=== PATIENT | female | born 1970 | race Caucasian/White ===

== ENCOUNTER 2016-10-07 21:17 | Observation (INO) | payer OTHER ==
--- NOTE | 2016-10-07 21:37 | PDOC ---
History of Present Illness - History of Present Illness Initial Comments: 10/07/16 21:44 The patient is a 45 year old female with history of hypertension, hyperlipidemia , diabetes (not currently on medications) who presents to the ED complaining of 2 hours of room-spinning dizziness with associated nausea, chest tightness, and mild left sided headache radiating to the neck. The patient states she was doing nothing in particular at the onset of her pain. She denies shortness of breath. She denies abdominal pain, vomiting, or diarrhea. She endorses chills in the past 3 days, but denies fever or recent illness. She denies ear ringing. PCP: Dr. Slaughter <Francine Medina - Last Filed: 10/08/16 02:35> - General History Source: Patient <Cristobal Palma - Last Filed: 10/08/16 06:16> - General Chief Complaint: Chest Pain Stated Complaint: CHEST PAIN Time Seen by Provider: 10/07/16 21:37 NIH Stroke Scale - Last Known Well Date/Time & Onset Date Last Known Well: 10/07/16 Time Last Known Well: 19:00 - Initial Evaluation Level of consciousness: Alert Ask patient the month and their age: Answers both correctly Ask patient to open & close eyes; make fist and let go: Obeys both correctly Best gaze (horizontal eye movement): Normal Visual field testing: No visual field loss Facial paresis (Show teeth/raise eyebrows/close eyes tight): Normal symmetrical movement Motor Function: Left Arm: Normal Motor Function: Right Arm: Normal (extends arm 90 (or 45) degrees for 10 seconds without drift Motor Function: Left Leg: Normal (extends leg 30 degrees for 5 seconds without drift) Motor Function: Right Leg: Normal (extends leg 30 degrees for 5 seconds without drift) Limb Ataxia: No ataxia Sensory(Use pinprick test arms,legs,trunk,face/side to side): Normal Best language (Describe picture, name items, read sentences): No Aphasia Dysarthria (read several words): Normal articulation Extinction and Inattention: No abnormality - Total Score NIH Stroke Scale Score: 0 <Cristobal Palma - Last Filed: 10/08/16 06:16> tPA Exclusion checklist 3-4.5h - Time Elapsed Date last known well: 10/07/16 Time last known well: 19:00 Elaspsed time: Day(s) and 11 Hour(s) and 13 Minutes - Thrombolytic Therapy Candidate Is patient eligible for thrombolytic therapy: No - Exclusion Criteria 3-4.5 hr SBP greater than 185 or DBP greater than 110mmHg despite tx: No Recent IC/spinal surgery,head trauma or stroke<3mos.: No Hx IC hemorrhage, IC neoplasm, AV malformation or aneurysm: No Active internal bleeding: No Blding diathesis(low plt ct, inc PTT,INR>1.7 or use of NOAC): No CT demonstrates multilobar infarct(>1/3 cerebral hemiphere): No Arterial puncture at noncompressible site in previous 7 days: No Blood glucose concentration less than 50mg/dL (2.7mmol/L): No - Relative Exclusion Criteria 3-4.5 hr Life expectancy <1 yr or severe co-morbid illness: No : No Patient/family refused: No Stroke severity too mild: Yes Recent acute OR (w/in previous 3 months): No Seizure at onset with postictal residual neuro impairments: No Major surgery or serious trauma w/in previous 14 days: No Recent GI or hemorrhage (w/in previous 21 days): No - Add'l Relative Exclusion 3-4.5 hr Age > 80: No Hx of both diabetes AND prior ischemic stroke: No Taking an oral anticoagulant regardless of INR: No NIHSS >25: No - Ineligibility reason(s) Reasons No tPA given: See reason(s) noted above (pt had no focal neurological deficits, infarct was incidental finding on CT scan) <Cristobal Palma - Last Filed: 10/08/16 06:16> Past History <Francine Medina - Last Filed: 10/08/16 02:35> - Past Medical History Anemia: Yes Diabetes: Yes HTN: Yes Hypercholesterolemia: Yes - Surgical History Abdominal Surgery: Yes GI Surgery: Yes (GASTRIC BYPASS) - Psycho/Social/Smoking Cessation Hx Suicidal Ideation: No Smoking History: Current some day smoker Have you smoked in the past 12 months: Yes Number of Cigarettes Smoked Daily: 0 Hx Alcohol Use: Yes (RARE) Drug/Substance Use Hx: No <Cristobal Palma - Last Filed: 10/08/16 06:16> - Past Medical History Allergies/Adverse Reactions: Allergies Allergy/AdvReac Type Severity Reaction Status Date / Time No Known Allergies Allergy Verified 10/07/16 21:36 Home Medications: Ambulatory Orders Aspirin [ASA -] 81 mg PO DAILY tab.chew 06/23/16 Atorvastatin Ca [Lipitor] 10 mg PO HS tablet 06/23/16 Ferrous Sulfate [Feosol] 325 mg PO DAILY ud 06/23/16 Hydrochlorothiazide [Hctz -] 25 mg PO DAILY tablet 06/23/16 Lisinopril [Prinivil] 30 mg PO DAILY tablet 06/23/16 Review of Systems - Review of Systems Able to Perform ROS?: Yes Comments:: 10/07/16 21:49 GENERAL/CONSTITUTIONAL: No fever or chills. No weakness. HEAD, EYES, EARS, NOSE AND THROAT: No change in vision. No ear pain or discharge. No sore throat CARDIOVASCULAR: +Chest discomfort. No chest pain or shortness of breath. RESPIRATORY: No cough, wheezing, or hemoptysis. GASTROINTESTINAL: +Nausea. No vomiting, diarrhea or constipation. GENITOURINARY: No dysuria, frequency, or change in urination. MUSCULOSKELETAL: No joint or muscle swelling or pain. No neck or back pain. SKIN: No rash NEUROLOGIC: +Dizziness. +Left sided headache. No loss of consciousness, or change in strength/sensation. ENDOCRINE: No increased thirst. No abnormal weight change. HEMATOLOGIC/LYMPHATIC: No anemia, easy bleeding, or history of blood clots. ALLERGIC/IMMUNOLOGIC: No hives or skin allergy. <Francine Medina - Last Filed: 10/08/16 02:35> *Physical Exam - Vital Signs Last Vital Signs Temp Pulse Resp BP Pulse Ox 97.6 F 60 18 171/105 100 10/07/16 21:36 10/07/16 21:36 10/07/16 21:36 10/07/16 21:36 10/07/16 21:36 - Physical Exam Comments: 10/07/16 21:54 GENERAL: Awake, alert, and fully oriented, in no acute distress HEAD: No signs of trauma EYES: PERRLA, EOMI, sclera anicteric, conjunctiva clear ENT: Auricles normal inspection, hearing grossly normal, nares patent, oropharynx clear without exudates. Moist mucosa NECK: Normal ROM, supple, no lymphadenopathy, JVD, or masses LUNGS: Breath sounds equal, clear to auscultation bilaterally. No wheezes, and no crackles HEART: Regular rate and rhythm, normal S1 and S2, no murmurs, rubs or gallops ABDOMEN: Soft, nontender, normoactive bowel sounds. No guarding, no rebound. No masses EXTREMITIES: Normal range of motion, no edema. No clubbing or cyanosis. No cords, erythema, or tenderness NEUROLOGICAL: Cranial nerves II through XII grossly intact. Normal speech, normal gait. Sensation intact throughout. 5/5 motor strength in all 4 extremities. SKIN: Warm, Dry, normal turgor, no rashes or lesions noted. <Francine Medina - Last Filed: 10/08/16 02:35> Heart Score/ECG Review #1 10/07/16 21:57 EKG obtained 21:32. Sinus bradycardia at 59 bpm. Otherwise normal ECG. <Francine Medina - Last Filed: 10/08/16 02:35> ED Treatment Course - LABORATORY CBC & Chemistry Diagram: 10/07/16 22:00 10/07/16 22:00 - RADIOLOGY Radiology Studies Ordered: 10/08/16 01:58 CT of brain, reviewed and interpreted by Imaging Sanitary Engineer FINDINGS: No bleed. No mass. 3.9 mm low density focus just inferior to the left basal ganglia is of uncertain significant. It could represent a verchow robins space . It is not clearly present on the prior scan but this could be due to volume averaging. It could represent a small lacunar infarct of indeterminate age. Too small to characterize. Correlate with any symptoms related to this area. No other infarct is identified. THIS DOCUMENT HAS BEEN ELECTRONICALLY SIGNED Deonte Linares MD 10/08/2016 01:48 DANO Pavon. Please call Imaging Sanitary Engineer [phone] with questions. <Francine Medina - Last Filed: 10/08/16 02:35> - LABORATORY CBC & Chemistry Diagram: 10/07/16 22:00 10/07/16 22:00 <Cristobal Palma - Last Filed: 10/08/16 06:16> Medical Decision Making - Medical Decision Making 10/08/16 02:[address] results reviewed. Patient reports she was given 2 baby ASA by EMS. Call placed to supply person Neurology group at [phone]. Awaiting call back. 10/08/16 02:35 Second call to [facility] at [phone]. Awaiting call back. <Francine Medina - Last Filed: 10/08/16 02:35> - Medical Decision Making 10/07/16 22:03 Dr. Palma: The scribe's documentation has been prepared under my direction and personally reviewed by me in its entirery. I confirm that the note above accurately reflects all work, treatment, procedures, and medical decision making performed by me. 10/08/16 06:[address] Haynes (neurology). Pt will be seen later on today. Pt is not a TPA candidate as pt had no neurological deficits and infarct was an incident finding <Cristobal Palma - Last Filed: 10/08/16 06:16> *DC/Admit/Observation/Transfer - Attestations Scribe Attestion: 10/07/16 21:57 Documentation prepared by Francine Medina, acting as medical device assembler for Cristobal Palma DO. <Francine Medina - Last Filed: 10/08/16 02:35> - Discharge Dispostion Admit: Yes <Cristobal Palma - Last Filed: 10/08/16 06:16> Diagnosis at time of Disposition: Lacunar infarction Hypertension Qualifiers: Hypertension type: essential hypertension Qualified Code(s): I10 - Essential ( primary) hypertension - Referrals
[2016-10-07] MEDS ORDERED: ONDANSETRON 4 MG/2 ML VIAL IVPUSH STA ×2 (21:38→22:45)
[2016-10-07] MEDS ORDERED: MECLIZINE HCL 25 MG TABLET (FP) PO STA (21:38)
[2016-10-07 21:45] VITALS: BMI 28.0
[2016-10-07] MEDS ORDERED: ONDANSETRON 4 MG/2 ML VIAL ONE ×2 (22:21→22:47)
[2016-10-07] MEDS ORDERED: MECLIZINE HCL 25 MG TABLET (FP) ONE (22:21)
[2016-10-07 22:32] LABS: BASOPHIL 1.3 % (0-2.0); EOSINOPHIL 3.1 % (0-4.5); MCH 27.1 pg (25.7-33.7); MEAN CELL VOLUME 82.1 fl (80-96); MEAN PLT VOLUME 7.3 fl (7.5-11.1); NEUTROPHILS 37.7 % (42.8-82.8); PLATELET COUNT 294 K/MM3 (134-434); RDW 14.5 % (11.6-15.6); WHITE BLOOD COUNT 5.5 K/mm3 (4.0-10.0)
[2016-10-07 22:45] LABS: INR 1.09 (0.82-1.09)
[2016-10-07] MEDS ORDERED: hydrALAZINE HCL 20 MG/ML VIAL IVPUSH ONE (22:46)
[2016-10-07] MEDS ORDERED: hydrALAZINE HCL 20 MG/ML VIAL ONE (22:47)
[2016-10-07 23:16] LABS: ALBUMIN 3.3 g/dl (3.4-5.0); ANION GAP 8 (8-16); BILIRUBIN,TOTAL 0.2 mg/dL (0.2-1.0); CALCIUM 8.4 mg/dL (8.5-10.1); CO2 30 mmol/L (21-32); CREATININE 0.7 mg/dL (0.55-1.02); GLUCOSE,RANDOM 91 mg/dL (74-106); MAGNESIUM 2.3 mg/dL (1.8-2.4); SGOT/AST 14 U/L (15-37); SGPT/ALT 26 U/L (12-78); TOT PROT 6.4 g/dl (6.4-8.2)
[2016-10-07 23:19] LABS: ALK PHOS 95 U/L (45-117); TROPONIN I < 0.02 ng/ml (0.00-0.05)
[2016-10-07 23:37] LABS: URINE APPEARANCE CLEAR; URINE BILIRUBIN NEGATIVE (NEGATIVE); URINE COLOR STRAW; URINE GLUCOSE (UA) NEGATIVE (NEGATIVE); URINE KETONE NEGATIVE (NEGATIVE); URINE LEUK ESTERASE NEGATIVE (NEGATIVE); URINE NITRITE NEGATIVE (NEGATIVE); URINE PROTEIN NEGATIVE (NEGATIVE); URINE UROBILINOGEN NEGATIVE E.U./dl (0.2-1.0)
[2016-10-07 23:39] LABS: URINE BLOOD 2+ (NEGATIVE)
[2016-10-07 23:42] LABS: URINE RBC 104 /hpf (0-3); URINE WBC 4 /hpf (3-5)
[2016-10-08] MEDS ORDERED: morphine CARPU-JECT 2 MG/1 ML DISP.SYRIN IVPUSH ONE ×3 (00:01→02:11)
[2016-10-08] MEDS ORDERED: ONDANSETRON 4 MG/2 ML VIAL IVPUSH STA (00:01)
[2016-10-08] MEDS ORDERED: morphine CARPU-JECT 2 MG/1 ML DISP.SYRIN ONE (00:05)
--- NOTE | 2016-10-08 02:14 | HP ---
<Holden Arora - Last Filed: 10/08/16 03:03> CHIEF COMPLAINT: Chest Pain PCP: Dr. Trish Song [phone] HISTORY OF PRESENT ILLNESS: The patient is a 45 year old female with history of hypertension, hyperlipidemia , diabetes (not currently on medications) who presented to the ED with 2 hours history of dizziness, chest tightness, nausea, and left sided headache radiating to the neck. The patient stated she was doing nothing in particular at the onset of her pain. She denied shortness of breath. She denied abdominal pain, vomiting, or diarrhea. She endorses chills in the past 3 days, but denied fever or recent illness. She denied ear ringing. ER course was notable for: (1) ASA x2 given by EMS (2) CT head showing lacunar infarct of indeterminate age (3) 3.9 mm low density focus, possible Virchow Robinns space Recent Travel: None reported PAST MEDICAL HISTORY: hypertension, hyperlipidemia, diabetes PAST SURGICAL HISTORY: Gastric Bypass Social History: Smoking: Current everyday smoker Alcohol: Report rare use Drugs: Denied Family History: noncontributory Allergies: No Known Allergies Allergy (Verified 10/07/16 21:36) HOME MEDICATIONS: Home Medications Medication Instructions Recorded Aspirin [ASA -] 81 mg PO DAILY tab.chew 06/23/16 Atorvastatin Ca [Lipitor] 10 mg PO HS tablet 06/23/16 Ferrous Sulfate [Feosol] 325 mg PO DAILY ud 06/23/16 Hydrochlorothiazide [Hctz -] 25 mg PO DAILY tablet 06/23/16 Lisinopril [Prinivil] 30 mg PO DAILY tablet 06/23/16 REVIEW OF SYSTEMS CONSTITUTIONAL: Present: Chills Absent: fever, diaphoresis, generalized weakness, malaise, loss of appetite, weight change HEENT: Absent: rhinorrhea, nasal congestion, throat pain, throat swelling, difficulty swallowing, mouth swelling, ear pain, eye pain, visual changes CARDIOVASCULAR: Present: Chest pain Absent: Syncope, palpitations, irregular heart rate, lightheadedness, peripheral edema RESPIRATORY: Absent: cough, shortness of breath, dyspnea with exertion, orthopnea, wheezing, stridor, hemoptysis GASTROINTESTINAL: Present: Nausea Absent: abdominal pain, abdominal distension, vomiting, diarrhea, constipation, melena, hematochezia GENITOURINARY: Absent: dysuria, frequency, urgency, hesitancy, hematuria, flank pain, genital pain MUSCULOSKELETAL: Present: Neck pain Absent: myalgia, arthralgia, joint swelling, back pain SKIN: Absent: rash, itching, pallor HEMATOLOGIC/IMMUNOLOGIC: Absent: easy bleeding, easy bruising, lymphadenopathy, frequent infections ENDOCRINE: Absent: unexplained weight gain, unexplained weight loss, heat intolerance, cold intolerance NEUROLOGIC: Present: Left sided headache, dizziness Absent: focal weakness or paresthesias, unsteady gait, seizure, mental status changes, bladder or bowel incontinence PSYCHIATRIC: Absent: anxiety, depression, suicidal or homicidal ideation, hallucinations. PHYSICAL EXAMINATION Vital Signs - 24 hr 10/07/16 10/07/16 10/07/16 21:36 23:33 23:43 Temperature 97.6 F Pulse Rate 60 Pulse Rate [ 61 Apical] Respiratory 18 20 Rate Blood Pressure 171/105 Blood Pressure 138/83 [Right Arm] O2 Sat by Pulse 100 100 100 Oximetry (%) 10/08/16 10/08/16 00:19 02:17 Temperature Pulse Rate Pulse Rate [ 61 63 Apical] Respiratory 18 Rate Blood Pressure Blood Pressure 136/82 166/103 [Right Arm] O2 Sat by Pulse Oximetry (%) GENERAL: Awake, alert, and fully oriented, in no acute distress. HEAD: Normal with no signs of trauma. EYES: Pupils equal, round and reactive to light, extraocular movements intact, sclera anicteric, conjunctiva clear. No lid lag. EARS, NOSE, THROAT: Ears normal, nares patent, oropharynx clear without exudates. Moist mucous membranes. NECK: Normal range of motion, supple without lymphadenopathy, JVD, or masses. LUNGS: Breath sounds equal, clear to auscultation bilaterally. No wheezes, and no crackles. No accessory muscle use. HEART: Regular rate and rhythm, normal S1 and S2 without murmur, rub or gallop. ABDOMEN: Soft, nontender, not distended, normoactive bowel sounds, no guarding, no rebound, no masses. No hepatomegaly or splenomegaly. MUSCULOSKELETAL: Normal range of motion at all joints. No bony deformities or tenderness. No CVA tenderness. UPPER EXTREMITIES: 2+ pulses, warm, well-perfused. No cyanosis. No clubbing. Cap refill <2 seconds. No peripheral edema. LOWER EXTREMITIES: 2+ pulses, warm, well-perfused. No calf tenderness. No peripheral edema. NEUROLOGICAL: Cranial nerves II-XII intact. Normal speech. PSYCHIATRIC: Cooperative. Good eye contact. Appropriate mood and affect. SKIN: Warm, dry, normal turgor, no rashes or lesions noted. Laboratory Results - last 24 hr 10/07/16 10/07/16 10/07/16 22:00 22:00 22:00 WBC 5.5 RBC 4.46 Hgb 12.1 D Hct 36.6 D MCV 82.1 MCHC 33.0 RDW 14.5 D Plt Count 294 MPV 7.3 L Neutrophils % 37.7 L D Lymphocytes % 51.0 H D Monocytes % 6.9 Eosinophils % 3.1 Basophils % 1.3 INR 1.09 Sodium 142 Potassium 3.4 L Chloride 104 Carbon Dioxide 30 Anion Gap 8 BUN 20 H D Creatinine 0.7 Creat Clearance w eGFR > 60 Random Glucose 91 Calcium 8.4 L Magnesium 2.3 Total Bilirubin 0.2 D AST 14 L D ALT 26 Alkaline Phosphatase 95 Creatine Kinase 105 Troponin I < 0.02 Total Protein 6.4 Albumin 3.3 L Serum , Qual Urine Color Urine Appearance Urine pH Ur Specific [place] Urine Protein Urine Glucose (UA) Urine Ketones Urine Blood Urine Nitrite Urine Bilirubin Urine Urobilinogen Ur Leukocyte Esterase Urine RBC Urine WBC Ur Epithelial Cells 10/07/16 10/07/16 22:00 23:00 WBC RBC Hgb Hct MCV MCHC RDW Plt Count MPV Neutrophils % Lymphocytes % Monocytes % Eosinophils % Basophils % INR Sodium Potassium Chloride Carbon Dioxide Anion Gap BUN Creatinine Creat Clearance w eGFR Random Glucose Calcium Magnesium Total Bilirubin AST ALT Alkaline Phosphatase Creatine Kinase Troponin I Total Protein Albumin Serum , Qual Negative Urine Color Straw Urine Appearance Clear Urine pH 8.0 D Ur Specific [place] 1.008 Urine Protein Negative Urine Glucose (UA) Negative Urine Ketones Negative Urine Blood 2+ H Urine Nitrite Negative Urine Bilirubin Negative Urine Urobilinogen Negative Ur Leukocyte Esterase Negative Urine RBC 104 Urine WBC 4 Ur Epithelial Cells Rare IMAGING: CT of brain, reviewed and interpreted by Imaging Beauty Counselor FINDINGS: No bleed. No mass. 3.9 mm low density focus just inferior to the left basal ganglia is of uncertain significant. It could represent a Virchow Robbin' s space . It is not clearly present on the prior scan but this could be due to volume averaging. It could represent a small lacunar infarct of indeterminate age. Too small to characterize. Correlate with any symptoms related to this area. No other infarct is identified. THIS DOCUMENT HAS BEEN ELECTRONICALLY SIGNED Deonte Linares MD 10/08/2016 01:48 DANO Geller Please call Imaging Beauty Counselor [phone] with questions. ASSESSMENT/PLAN: The patient is a 45 year old female with history of hypertension, hyperlipidemia , diabetes who presented with dizziness, chest tightness, nausea, and left sided headache radiating to the neck being admitted for lacunar infarct on CT 1. CVA- lacunar infarct on CT -Continue on aspirin -ECHO -Carotid US -Check lipid panel -Hemoglobin A1C -Statin -Check TSH -MRI brain without contrast -Neuro consult 2. HTN -Continue home meds -Hold BP meds for now resume tomorrow 3. HLD -Continue statin 4. Diabetes- Not currently on any meds -Check A1C 5. Chest tightness- Heart score 4 - Rule out ACS -Trend troponins -ECG -Follow up ECHO 6. DVT PPX -SCDs Admit to stroke tele. Documentation prepared by Holden Arora, acting as director medical science for Dr. Maranda Roth MD. <Maranda Roth - Last Filed: 10/08/16 05:56> ADDENDUM: HTN- Hold meds Visit type - Emergency Visit Emergency Visit: Yes ED Registration Date: 10/08/16 Care time: The patient presented to the Emergency Department on the above date and was hospitalized for further evaluation of their emergent condition. - New Patient This patient is new to me today: Yes Date on this admission: 10/08/16 - Critical Care Critical Care patient: No
[2016-10-08] MEDS ORDERED: hydrALAZINE HCL 20 MG/ML VIAL IVPUSH ONE (02:17)
[2016-10-08] MEDS ORDERED: hydrALAZINE HCL 20 MG/ML VIAL ONE (02:19)
[2016-10-08] MEDS ORDERED: morphine CARPU-JECT 4 MG/1 ML DISP.SYRIN ONE (02:19)
[2016-10-08] MEDS ORDERED: HYDROmorphone HCL CARPU-JECT 1 MG/1 ML DISP.SYRIN IVPUSH ONE (03:01)
[2016-10-08] MEDS ORDERED: HYDROmorphone HCL CARPU-JECT 1 MG/1 ML DISP.SYRIN ONE ×2 (03:03→12:13)
[2016-10-08 09:52] LABS: BASOPHIL 1.3 % (0-2.0); EOSINOPHIL 2.1 % (0-4.5); MCHC 32.7 g/dl (32.0-36.0); MEAN CELL VOLUME 82.6 fl (80-96); MEAN PLT VOLUME 7.2 fl (7.5-11.1); NEUTROPHILS 55.9 % (42.8-82.8); PLATELET COUNT 296 K/MM3 (134-434); RDW 14.6 % (11.6-15.6); WHITE BLOOD COUNT 5.4 K/mm3 (4.0-10.0)
[2016-10-08] MEDS: FERROUS SO4 325 MG TABLET (FP) PO SCH (09:54)
[2016-10-08] MEDS: ASPIRIN 325 MG ENTERIC COATED TABLET (FP) PO SCH (09:54)
[2016-10-08] MEDS ORDERED: LISINOPRIL 10 MG TABLET (FP) PO SCH (10:00)
[2016-10-08] MEDS ORDERED: HYDROCHLOROTHIAZIDE 25 MG TABLET (FP) PO SCH (10:00)
[2016-10-08 10:12] LABS: ANION GAP 9 (8-16); CALCIUM 8.6 mg/dL (8.5-10.1); CHOLESTEROL 129 mg/dL (50-200); CO2 29 mmol/L (21-32); CREATININE 0.6 mg/dL (0.55-1.02); GLUCOSE,RANDOM 88 mg/dL (74-106)
[2016-10-08 10:22] LABS: LDL CHOLESTEROL (ONLY SJRH) 70 mg/dL (5-100); THYROID STIMULATING HORMONE 2.19 uIU/ml (0.358-3.74)
[2016-10-08 10:32] LABS: C-REACTIVE PROTEIN < 0.3 MG/DL (0.00-0.3)
[2016-10-08 10:56] LABS: INR 1.11 (0.82-1.09); PROTHROMBIN TIME (PATIENT) 12.2 SEC (9.98-11.88)
[2016-10-08 10:58] LABS: ACTIVATED PTT 28.8 SECONDS (26.9-34.4)
[2016-10-08] MEDS ORDERED: HYDROmorphone HCL CARPU-JECT 1 MG/1 ML DISP.SYRIN IVPB ONE (11:00)
[2016-10-08] MEDS: ACETAMINOPHEN 325 MG TABLET (FP) PO PRN ×2 (11:14→21:16)
[2016-10-08] MEDS ORDERED: LISINOPRIL 10 MG TABLET (FP) PO ONE (11:36)
--- NOTE | 2016-10-08 11:39 | CONSULT ---
Consult Consult Specialty:: Neurology Reason for Consultation:: Possible stroke on CT head - History of Present Illness History of Present Illness: 45 year old woman with history of hypertension, diabetes, hyperlipidemia, presented to the ED with history of vertigo, chest tightness and left sided headache. The patient denies prior history of migraine, states she noted a holocephalic pain now more prominent on the left side. She does report nausea with the headache but denies photophobia, phonophobia, or vomiting. CT head final report- no acute infarct, left basal ganglia hypodensity likely small periventricular space. - Past Medical History [employer]: Yes: Syncope Cardio/Vascular: Yes: HTN, Hyperlipdemia Endocrine: Yes: Diabetes Mellitus - Alcohol/Substance Use Hx Alcohol Use: Yes (RARE) - Smoking History Smoking history: Current some day smoker Have you smoked in the past 12 months: Yes Aproximately how many cigarettes per day: 0 Home Medications - Allergies Allergies/Adverse Reactions: Allergies Allergy/AdvReac Type Severity Reaction Status Date / Time No Known Allergies Allergy Verified 10/07/16 21:36 - Home Medications Home Medications: Ambulatory Orders Aspirin [ASA -] 81 mg PO DAILY tab.chew 06/23/16 Atorvastatin Ca [Lipitor] 10 mg PO HS tablet 06/23/16 Ferrous Sulfate [Feosol] 325 mg PO DAILY ud 06/23/16 Hydrochlorothiazide [Hctz -] 25 mg PO DAILY tablet 06/23/16 Lisinopril [Prinivil] 30 mg PO DAILY tablet 06/23/16 Review of Systems - Review of Systems Constitutional: reports: No Symptoms Eyes: reports: No Symptoms HENT: reports: No Symptoms Neck: reports: No Symptoms Cardiovascular: reports: Chest Pain Respiratory: reports: No Symptoms Gastrointestinal: reports: No Symptoms Integumentary: reports: No Symptoms Neurological: reports: Headache Physical Exam Vital Signs: Vital Signs Temperature 97.6 F 10/07/16 21:36 Pulse Rate 59 L 10/08/16 10:40 Respiratory Rate 20 10/08/16 10:40 Blood Pressure 127/73 10/08/16 10:40 O2 Sat by Pulse Oximetry (%) 98 10/08/16 10:40 Constitutional: Yes: Well Nourished Eyes: Yes: Conjunctiva Clear, EOM Intact HENT: Yes: Atraumatic, Normocephalic Cardiovascular: Yes: S1, S2 Neurological: Yes: Alert, Oriented, Cran Nerves II-XII Intact ...Motor Strength: WNL Labs: CBC, BMP 10/08/16 09:20 10/08/16 09:20 Assessment/Plan 45 year old woman with history of hypertension, diabetes, hyperlipidemia, presented to the ED with history of vertigo, chest tightness and left sided headache. The patient denies prior history of migraine, states she noted a holocephalic pain now more prominent on the left side. She does report nausea with the headache but denies photophobia, phonophobia, or vomiting. CT head final report- no acute infarct, left basal ganglia hypodensity likely small periventricular space. Recommend Final CT head reports no acute infract Recommend MRI brain without contrast to further evaluate Carotid doppler shows no significant stenosis Recommend cardiac workup for chest tightness Supportive care
[2016-10-08 13:28] LABS: ERYTHROCYTE SEDIMENTATION RATE 9 mm/hr (0-20)
--- NOTE | 2016-10-08 14:34 | PN ---
Physical Exam: SUBJECTIVE: Patient seen and examined. c/o headache, tingling all around her lips. chest pain feels like tightness mid chest, substernally, nonradiating, 7/10 intensity. hx of multiple episodes of syncope. OBJECTIVE: Vital Signs Period Temp Pulse Resp BP Sys/Luque Pulse Ox Last 24 Hr 59-70 18-20 122-166/73-103 98-100 GENERAL: The patient is awake, alert, and fully oriented, in no acute distress. HEAD: Normal with no signs of trauma. EYES: PERRL, extraocular movements intact, sclera anicteric, conjunctiva clear. mild exophthalmos, no ptosis or lid lag. ENT: moist mucous membranes. LUNGS: Breath sounds equal, clear to auscultation bilaterally, no wheezes, no crackles, no accessory muscle use. HEART: Regular rate and rhythm, S1, S2 without murmur, rub or gallop. ABDOMEN: Soft, nontender, nondistended, normoactive bowel sounds, EXTREMITIES: 2+ pulses, warm, well-perfused, no edema. freely moving all joints without difficulty. Laboratory Results - last 24 hr 10/08/16 10/08/16 10/08/16 09:20 09:20 09:20 WBC 5.4 RBC 4.73 Hgb 12.8 Hct 39.1 MCV 82.6 MCHC 32.7 RDW 14.6 Plt Count 296 MPV 7.2 L Neutrophils % 55.9 D Lymphocytes % 32.5 D Monocytes % 8.2 Eosinophils % 2.1 Basophils % 1.3 ESR 9 INR 1.11 PTT (Actin FS) 28.8 Sodium 143 Potassium 3.6 Chloride 105 Carbon Dioxide 29 Anion Gap 9 BUN 15 D Creatinine 0.6 Random Glucose 88 Hemoglobin A1c % Calcium 8.6 Troponin I C-Reactive Protein < 0.3 Triglycerides 49 Cholesterol 129 Total LDL Cholesterol 70 HDL Cholesterol 64 H TSH 2.19 10/08/16 10/08/16 09:20 09:20 WBC RBC Hgb Hct MCV MCHC RDW Plt Count MPV Neutrophils % Lymphocytes % Monocytes % Eosinophils % Basophils % ESR INR PTT (Actin FS) Sodium Potassium Chloride Carbon Dioxide Anion Gap BUN Creatinine Random Glucose Hemoglobin A1c % 5.6 Calcium Troponin I < 0.02 C-Reactive Protein Triglycerides Cholesterol Total LDL Cholesterol HDL Cholesterol TSH Active Medications Generic Name Dose Route Start Last Admin Trade Name Freq PRN Reason Stop Dose Admin Acetaminophen 650 mg 10/08/16 09:58 10/08/16 11:14 Tylenol - PO 650 mg Q4H PRN Administration FEVER OR PAIN Aspirin 325 mg 10/08/16 10:00 10/08/16 09:54 Ecotrin - PO 325 mg DAILY MICHELL Administration Atorvastatin Calcium 80 mg 10/08/16 22:00 Lipitor - PO HS MICHELL Ferrous Sulfate 325 mg 10/08/16 10:00 10/08/16 09:54 Feosol - PO 325 mg DAILY MICHELL Administration ASSESSMENT/PLAN: 45 yr old woman with HTN,HLD,DM, presents to ED with dizziness, facial numbness , and left sided headache found to have hypertensive urgency. #r/o CVA given symptoms of facial numbness - CT head showing lacunar infarct of indeterminate age, 3.9 mm low density focus , possible Virchow Robinns space - Neurology consult, Dr. Shane - carotid doppler without significant stenosis, echo with mild concentric left ventricular hypertrophy(known to her pediatrician/medical doctor) - treated with ASA 325 and statin - lipid profile wnl, HbA1c wnl (no dm) - MRI pending #Hx of syncopal episode - had past outpatient work-up with holter monitor was told her by her pediatrician/medical doctor that she was fine - possible stress test; consult cardiology dr. dykes - admit to tele for arrhythmia monitoring - Diet: regular DVT: low risk, encourage ambulation Visit type - Emergency Visit Emergency Visit: No - New Patient This patient is new to me today: Yes Date on this admission: 10/08/16 - Critical Care Critical Care patient: No - Discharge Referral Referred to [facility] No
--- NOTE | 2016-10-08 16:06 | EKG ---
Test Reason : Blood Pressure : / mmHG Vent. Rate : 059 BPM Atrial Rate : 059 BPM P-R Int : 168 ms QRS Dur : 088 ms QT Int : 456 ms P-R-T Axes : 032 017 032 degrees QTc Int : 451 ms POOR DATA QUALITY, INTERPRETATION MAY BE ADVERSELY AFFECTED SINUS BRADYCARDIA OTHERWISE NORMAL ECG WHEN COMPARED WITH ECG OF 19-JUN-2016 15:42, CRITERIA FOR SEPTAL INFARCT ARE NO LONGER PRESENT Confirmed by HENNY SHEEHAN, [place] ([id number]) on 10/08/2016 4:06:09 PM Referred By: Confirmed By:AZ INMAN MD
--- NOTE | 2016-10-08 17:08 | PN ---
Teaching Attending Note Name of Resident: Elba Trujillo ATTENDING PHYSICIAN STATEMENT I saw and evaluated the patient. I reviewed the resident's note and discussed the case with the resident. I agree with the resident's findings and plan as documented. SUBJECTIVE: c/o episode of vertigo and multiple episodes of syncope in the past . Headache improved OBJECTIVE: Vital Signs Temperature 98.1 F 10/08/16 16:30 Pulse Rate 66 10/08/16 16:30 Respiratory Rate 20 10/08/16 16:30 Blood Pressure 125/82 10/08/16 16:30 O2 Sat by Pulse Oximetry (%) 97 10/08/16 16:45 onstitutional: Yes: Well Nourished Eyes: Yes: Conjunctiva Clear, EOM Intact HENT: Yes: Atraumatic, Normocephalic Cardiovascular: Yes: S1, S2, No MRG Neurological: Yes: Alert, Oriented, Cran Nerves II-XII Intact Motor Strength: 5/5 B/L CBC, BMP 10/08/16 09:20 10/08/16 09:20 CT head final report- no acute infarct, left basal ganglia hypodensity likely small periventricular space. 45 year old female that presents with transient vertigo, facial numbness and HTn urgency 1. Vertigo, transient paresthesia - rule out TIA. CT is negative. Carotid dopplers show no hemodynamically significant stenosis. - ASA -statins -MRI brain -BP control 2. Episode of chest tightness, reported history of arrythmias? - telemetry - cardiac enzymes x 3 -f/u echo -cardiology / stress test 3. Headache- now controlled -tylenol PRN
[2016-10-08] MEDS ORDERED: ATORVASTATIN CA 80 MG TABLET (FP) PO ONE (22:00)
[2016-10-08] MEDS ORDERED: ATORVASTATIN CA 80 MG TABLET (FP) PO SCH (22:00)
[2016-10-09 05:43] VITALS: TEMP 98.2
[2016-10-09 08:09] LABS: CALCIUM 8.5 mg/dL (8.5-10.1); CREATININE 0.6 mg/dL (0.55-1.02)
--- NOTE | 2016-10-09 09:15 | CON.CARD ---
[id number] Illness Chief Complaint: Presently asymptomatic. History of Present Illness: The patient is a 45 year old female with history of hypertension, hyperlipidemia , diabetes (not currently on medications) who presents to the ED complaining of 2 hours of room-spinning dizziness with associated nausea, chest tightness, and mild left sided headache radiating to the neck. The patient states she was doing nothing in particular at the onset of her pain. She denies shortness of breath. She denies abdominal pain, vomiting, or diarrhea. She endorses chills in the past 3 days, but denies fever or recent illness. She denies ear ringing. PCP: Dr. 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 Cardio/Vascular: Yes: HTN, Hyperlipdemia Pulmonary: No: Sleep Apnea Renal/: No: Renal Inusuff Endocrine: Yes: Diabetes Mellitus - Alcohol/Substance Use Hx Alcohol Use: Yes (RARE) - Smoking History Smoking history: Current some day smoker Have you smoked in the past 12 months: No Aproximately how many cigarettes per day: 0 Home Medications - Allergies Allergies/Adverse Reactions: Allergies Allergy/AdvReac Type Severity Reaction Status Date / Time No Known Allergies Allergy Verified 10/07/16 21:36 - Home Medications Home Medications: Ambulatory Orders Aspirin [ASA -] 81 mg PO DAILY tab.chew 06/23/16 Atorvastatin Ca [Lipitor] 10 mg PO HS tablet 06/23/16 Ferrous Sulfate [Feosol] 325 mg PO DAILY ud 06/23/16 Hydrochlorothiazide [Hctz -] 25 mg PO DAILY tablet 06/23/16 Lisinopril [Prinivil] 30 mg PO DAILY tablet 06/23/16 Hydrochlorothiazide [Hctz -] 25 mg PO DAILY tablet 10/09/16 Lisinopril [Prinivil] 30 mg PO DAILY #0 tablet 10/09/16 Family Disease History - Family Disease History Family History: Denies Review of Systems - Review of Systems Constitutional: reports: Weakness Eyes: reports: No Symptoms HENT: reports: No Symptoms Neck: reports: No Symptoms Cardiovascular: reports: No Symptoms Respiratory: reports: No Symptoms Gastrointestinal: reports: No Symptoms Genitourinary: reports: No Symptoms Breasts: reports: No Symptoms Reported Musculoskeletal: reports: No Symptoms Integumentary: reports: No Symptoms Neurological: reports: Dizziness Endocrine: reports: No Symptoms Hematology/Lymphatic: reports: No Symptoms Psychiatric: reports: Anxiety - Risk Factors Known Risk Factors: Yes: Diabetes Mellitus, Hypercholesterolemia, Hypertension, Physical Inactivity Vital Signs: Vital Signs Temperature 98.2 F 10/09/16 05:00 Pulse Rate 51 L 10/09/16 05:00 Respiratory Rate 18 10/09/16 05:00 Blood Pressure 117/64 10/09/16 05:00 O2 Sat by Pulse Oximetry (%) 98 10/09/16 04:00 Constitutional: Yes: Calm Eyes: Yes: WNL HENT: Yes: WNL Neck: Yes: WNL Respiratory: Yes: Regular Gastrointestinal: Yes: WNL Renal/: No: Anuria Cardiovascular: Yes: Regular Rate and Rhythm JVD: No Carotid Bruit: No PMI: Non-Displaced Heart Sounds: Yes: S1, S2 Murmur: Yes: Systolic Murmur, Grade 2 Musculoskeletal: Yes: Joint Stiffness Extremities: Yes: WNL Edema: No Peripheral Pulses WNL: Yes Integumentary: Yes: WNL Psychiatric: Yes: WNL - Other Data Labs, Other Data: CBC, BMP 10/08/16 09:20 10/09/16 05:35 INR, PTT INR 1.11 (0.82-1.09) 10/08/16 09:20 Troponin, BNP 10/08/16 09:20 Troponin I < 0.02 Troponin, BNP 10/08/16 09:20 Troponin I < 0.02 Imaging - Results Chest X-ray: Image Reviewed (no acute pathology) MRI: Image Reviewed (brain: no acute pathology) EKG: Image Reviewed (NSR) Problem List - Problems (1) Hypertension Assessment/Plan: On hydralazine, lisinopril, and HCTZ; serial BPs; electrolytes (K was repleted) ; BUN/Cr. F/u ECHO for LVEF, valve status. TSH. Lipids (on atorvastatin). Code(s): I10 - ESSENTIAL (PRIMARY) HYPERTENSION Qualifiers: Hypertension type: essential hypertension Qualified Code(s): I10 - Essential (primary) hypertension (2) Dizziness Assessment/Plan: orthostatic VSs. Hydration; avoid excessive diuretic use. Code(s): R42 - DIZZINESS AND GIDDINESS (3) Hyperlipidemia Code(s): E78.5 - HYPERLIPIDEMIA, UNSPECIFIED (4) Diabetes Assessment/Plan: f/u fasting glucose and HGBA1C (?"diet-controlled DM"). Code(s): E11.9 - TYPE 2 DIABETES MELLITUS WITHOUT COMPLICATIONS
[2016-10-09] MEDS ORDERED: HYDROCHLOROTHIAZIDE 25 MG TABLET (FP) PO SCH (10:00)
[2016-10-09] MEDS ORDERED: LISINOPRIL 10 MG TABLET (FP) PO SCH (10:00)
[2016-10-09] MEDS: ASPIRIN 325 MG ENTERIC COATED TABLET (FP) PO SCH (10:26)
[2016-10-09] MEDS: FERROUS SO4 325 MG TABLET (FP) PO SCH (10:26)
--- NOTE | 2016-10-09 11:09 | PN ---
Progress Note, Physician History of Present Illness: 45 year old woman with history of hypertension, diabetes, hyperlipidemia, presented to the ED with history of vertigo, chest tightness and left sided headache. The patient denies prior history of migraine, states she noted a holocephalic pain now more prominent on the left side. She does report nausea with the headache but denies photophobia, phonophobia, or vomiting. CT head final report- no acute infarct, left basal ganglia hypodensity likely small periventricular space. Doing much better Denies complaints MRI brain no acute findings - Current Medication List Current Medications: Active Medications Acetaminophen (Tylenol -) 650 mg PO Q4H PRN PRN Reason: FEVER OR PAIN Last Admin: 10/08/16 21:16 Dose: 650 mg Aspirin (Ecotrin -) 325 mg PO DAILY [facility] Last Admin: 10/09/16 10:26 Dose: 325 mg Atorvastatin Calcium (Lipitor -) 80 mg PO HS [facility] Last Admin: 10/08/16 21:17 Dose: 80 mg Ferrous Sulfate (Feosol -) 325 mg PO DAILY [facility] Last Admin: 10/09/16 10:26 Dose: 325 mg Hydrochlorothiazide (Hctz -) 25 mg PO DAILY [facility] Lisinopril (Prinivil) 30 mg PO DAILY [facility] - Objective Vital Signs: Vital Signs Temperature 98.2 F 10/09/16 05:00 Pulse Rate 51 L 10/09/16 05:00 Respiratory Rate 18 10/09/16 05:00 Blood Pressure 117/64 10/09/16 05:00 O2 Sat by Pulse Oximetry (%) 98 10/09/16 04:00 Constitutional: Yes: No Distress, Calm Eyes: Yes: EOM Intact HENT: Yes: Atraumatic, Normocephalic Neurological: Yes: Alert, Cran Nerves II-XII Intact ...Motor Strength: WNL Labs: CBC, BMP 10/08/16 09:20 10/09/16 05:35 INR, PTT INR 1.11 (0.82-1.09) 10/08/16 09:20 Assessment/Plan 45 year old woman with history of hypertension, diabetes, hyperlipidemia, presented to the ED with history of vertigo, chest tightness and left sided headache. The patient denies prior history of migraine, states she noted a holocephalic pain now more prominent on the left side. She does report nausea with the headache but denies photophobia, phonophobia, or vomiting. CT head final report- no acute infarct, left basal ganglia hypodensity likely small periventricular space. MRI brain no acute infarct Carotid doppler shows no significant stenosis Patient doing much better, MRI brain no acute findings, patient can follow up with neuro as outpatient for headache management
--- NOTE | 2016-10-09 11:40 | DS ---
Physical Exam: SUBJECTIVE: Patient seen and examined. feels lightheaded with sudden position changes. chest pain resolved, denies headache. Stable for outpatient follow-up. OBJECTIVE: Vital Signs Period Temp Pulse Resp BP Sys/Luque Pulse Ox Last 24 Hr 97.9 F-98.2 F 51-66 18-20 117-134/64-82 97-98 PHYSICAL EXAM GENERAL: The patient is awake, alert, and fully oriented, in no acute distress. HEAD: Normal with no signs of trauma. EYES: PERRL, extraocular movements intact, sclera anicteric, conjunctiva clear. ENT: Ears normal, nares patent, oropharynx clear without exudates, moist mucous membranes. NECK: Trachea midline, full range of motion, supple. LUNGS: Breath sounds equal, clear to auscultation bilaterally, no wheezes, no crackles, no accessory muscle use. HEART: bradycardia rate and regular rhythm, S1, S2 without murmur, rub or gallop. ABDOMEN: Soft, nontender, nondistended, normoactive bowel sounds, no guarding, no rebound, no hepatosplenomegaly, no masses. EXTREMITIES: 2+ pulses, warm, well-perfused, no edema. NEUROLOGICAL: Normal speech, gait normal PSYCH: Normal mood, normal affect. SKIN: Warm, dry, normal turgor, no rashes or lesions noted. LABS Laboratory Results - last 24 hr 10/08/16 10/09/16 09:20 05:35 ESR 9 Sodium 142 Potassium 3.8 Chloride 105 Carbon Dioxide 30 Anion Gap 7 L BUN 18 Creatinine 0.6 Random Glucose 83 Calcium 8.5 Selected Entries 10/07/16 10/08/16 10/08/16 21:36 02:17 02:44 Pulse Rate Pulse Rate [ Apical] Blood Pressure 171/105 Blood Pressure 166/103 166/103 [Right Arm] 10/08/16 10/08/16 10/08/16 14:00 16:30 17:15 Pulse Rate Pulse Rate [ 65 66 Apical] Blood Pressure 134/77 Blood Pressure [Right Arm] 10/09/16 10/09/16 05:00 10:00 Pulse Rate 51 L 48 L Pulse Rate [ Apical] Blood Pressure 117/64 140/87 Blood Pressure [Right Arm] Laboratory Tests 10/08/16 09:20 Triglycerides 49 Cholesterol 129 Total LDL Cholesterol 70 HDL Cholesterol 64 H TSH 2.19 IMAGING- summarized Brain MRI without contrast: The ventricles and basal cisterns appear unremarkable. Previously described small density along the inferior margin of the left basal ganglia demonstrates increased T2 and decreased T1 signal intensity suggestive of a prominent perivascular space versus a small choroid fissure cyst. No mass lesion, acute infarct or intracranial hemorrhage is seen. There is no shift of the midline structures. The craniocervical junction appears unremarkable. Flow voids are present within the central intracranial arterial circulation. No suspicious bone marrow abnormal signal is identified. Head CT w/o contrast: No evidence of acute intracranial hemorrhage, edema, midline shift, mass effect, or skull fracture. No CT evidence of acute territorial infarction. Hypodensity in the inferior aspect of the left basal ganglia is seen on single axial image, coronal reconstruction images, unchanged in comparison to coronal reconstruction images June 19, 2016 likely represent a small perivascular space. carotid dopplers: Minimal atherosclerotic disease with no evidence of hemodynamically significant stenoses. echo: Ef 70.6%, borderline concentric left ventricular hypertrophy. normal LV ejection fraction. transmitral spectral doppler flow pattern is abnormal for age. RV systolic function is normal. mild mitral and tricuspid regurg. mild pulmonary HTN. HOSPITAL COURSE: Date of Admission:10/08/16 - Date of Discharge: 10/09/16 45 year old woman with history of hypertension, hyperlipidemia, diabetes (not currently on medications) presented to the ED with 2 hours history of vertigo, chest tightness, nausea, and left sided headache radiating to the neck. Head CT and MRI were both negative for acute infarct or hemorrhage. Her blood pressure was elevated, noted above. She was treated with hydralazine 10mg in the ED for her elevated pressure and treated with dilauded for her headache which was not relieved with tylenol. Her troponins were not elevated on repeat draws, her lipid normal was wnl. Her chest pain resolved and did her headache. Her blood pressure decreased.While on telemetry her heart rate was bradycardic between 48- 50 at rest, it increased appropriately with exercise. Her orthostatics are listed below: Selected Entries 10/09/16 10/09/16 10/09/16 01:00 05:00 10:00 Blood Pressure 121/66 117/64 140/87 Blood Pressure 84 81 104 Mean Blood Pressure Supine Supine Sitting Position ACS was ruled out. She csn be follow-up as outpatient for further evaluation of her lightheadedness and for further cardiac work-up. Minutes to complete discharge: 45 Discharge Summary Reason For Visit: HYPERTENSION LACUNAR INFARCTION (STROKE) Current Active Problems Hypertension (Acute) Lacunar infarction (Acute) Condition: Stable - Instructions Diet, Activity, Other Instructions: Take Hydrochlorothiazide 25mg and lisinopril 30mg daily as prescribed by your dairy hand. Follow-up with Dr. Lofton in one week. When sitting up from bed or changing position, take your time. If you develop chest pain, faint, have difficulty breathing, or develop any new symptoms, return to the hospital. Referrals: Greg Ziegler MD [Staff Physician] - Trish Song [Primary Care Provider] - Disposition: HOME - Home Medications Comprehensive Discharge Medication List: Ambulatory Orders Aspirin [ASA -] 81 mg PO DAILY tab.chew 06/23/16 Atorvastatin Ca [Lipitor] 10 mg PO HS tablet 06/23/16 Ferrous Sulfate [Feosol] 325 mg PO DAILY ud 06/23/16 Hydrochlorothiazide [Hctz -] 25 mg PO DAILY tablet 06/23/16 Lisinopril [Prinivil] 30 mg PO DAILY tablet 06/23/16 This patient is new to me today: No Emergency Visit: No Critical Care patient: No - Discharge Referral Referred to [facility] No
[2016-10-09 12:29] VITALS: BP 140/87; PULSE 48
--- NOTE | 2016-10-09 17:30 | PN ---
Teaching Attending Note Name of Resident: Elba Trujillo ATTENDING PHYSICIAN STATEMENT I saw and evaluated the patient. I reviewed the resident's note and discussed the case with the resident. I agree with the resident's findings and plan as documented. SUBJECTIVE: Vital Signs Temp 98.2 F 10/09/16 05:00 Pulse 48 L 10/09/16 10:00 Resp 18 10/09/16 10:00 BP 140/87 10/09/16 10:00 Pulse Ox 98 10/09/16 10:00 Intake & Output 10/08/16 10/09/16 10/09/16 23:59 11:59 23:59 Intake Total 240 270 Balance 240 270 Weight 71.668 kg Intake: Oral 240 270 Other: Voiding Method Toilet Toilet # Unmeasured Voids Void 2 1 Bowel Movement No Height 5 ft 3 in Body Mass Index (BMI) 28.0 Weight Measurement Method Stated by Patient OBJECTIVE: ASSESSMENT AND PLAN: 1. Vertigo, transient paresthesia -likely related to vasovagal pre syncope. NOT A CVA. Initial radiology report was corrected. MRI- no acute changes . 2. Episode of chest tightness- ACS was ruled out o/p f/u with cardiology 3. Headache- now controlled -tylenol PRN d/c home discussed with patient in extent
== END 2016-10-09 11:52 | disposition home or self-care (01) ==
LOC: JER 21:17 → UNDOADMOB 10-08 02:10 → INTOOBSV 10-08 02:10 → JERBED 10-08 02:10 → UNDOADMIN 10-08 02:19 → JERBED 10-08 14:10 → J4W 10-08 17:20 → UNDODISOB 10-09 11:52
PROVIDERS: ADMIT Internal Medicine; ATTEND Internal Medicine
DX: R42 Dizziness and giddiness (principal); I16.0 Hypertensive urgency; G43.809 Other migraine, not intractable, without status migrainosus; E78.5 Hyperlipidemia, unspecified; E11.9 Type 2 diabetes mellitus without complications; F17.210 Nicotine dependence, cigarettes, uncomplicated
CPT/HCPCS: 36415; 70450-TC; 70551-TC; 71010-TC; 80048; 80053; 80061; 81003; 81015; 82550; 83036; 83721; 83735; 84443; 84484; 84703; 85025; 85610; 85651; 85730; 86140; 93005; 93010; 93306-TC; 93880-TC; 97116-GP; 99285-25; G0378

== ENCOUNTER 2017-03-07 15:07 | Emergency (ER) | payer OTHER ==
[2017-03-07 15:19] VITALS: TEMP 98; BMI 28.3
--- NOTE | 2017-03-07 16:44 | PDOC ---
History of Present Illness - General Chief Complaint: Pain Stated Complaint: BACK PAIN/LOWER ABD PAIN Time Seen by Provider: 03/07/17 16:08 History Source: Patient - History of Present Illness Timing/Duration: reports: other Abdominal Pain Onset Location: reports: flank Past History - Past Medical History Allergies/Adverse Reactions: Allergies Allergy/AdvReac Type Severity Reaction Status Date / Time No Known Allergies Allergy Verified 03/07/17 15:19 Home Medications: Ambulatory Orders Amlodipine Besylate [Norvasc -] 2.5 mg PO DAILY 03/07/17 Aspirin [ASA -] 81 mg PO DAILY 03/07/17 Atorvastatin Ca [Lipitor] 10 mg PO HS 03/07/17 Cholecalciferol (Vitamin D3) [Vitamin D3 -] 1,000 unit PO DAILY 03/07/17 Ferrous Sulfate 325 mg PO DAILY 03/07/17 Hydrochlorothiazide 25 mg PO DAILY 03/07/17 Lisinopril [Zestril] 30 mg PO DAILY 03/07/17 Anemia: Yes Diabetes: Yes HTN: Yes Hypercholesterolemia: Yes - Surgical History Abdominal Surgery: Yes Appendectomy: Yes Cholecystectomy: Yes GI Surgery: Yes (GASTRIC BYPASS) - Psycho/Social/Smoking Cessation Hx Suicidal Ideation: No Smoking History: Former smoker Have you smoked in the past 12 months: No Number of Cigarettes Smoked Daily: 0 If you are a former smoker, when did you quit?: 5 yrs Information on smoking cessation initiated: No Hx Alcohol Use: Yes (socially) Drug/Substance Use Hx: No Substance Use Type: None Review of Systems - Review of Systems Constitutional: No: Chills, Fever ABD/GI: No: Diarrhea, Nausea, Vomiting : Yes: Dysuria, Flank Pain. No: Hematuria *Physical Exam - Vital Signs Last Vital Signs Temp Pulse Resp BP Pulse Ox 98 F 58 L 18 118/75 100 03/07/17 15:09 03/07/17 15:09 03/07/17 15:03/07/17 15:03/07/17 15:09 - Physical Exam General Appearance: Yes: Appropriately Dressed. No: Apparent Distress HEENT: positive: Normal Voice Neck: positive: Supple Respiratory/Chest: negative: Respiratory Distress Gastrointestinal/Abdominal: positive: Normal Bowel Sounds, Soft. negative: Tender, Distended, Guarding, Rebound Musculoskeletal: negative: CVA Tenderness Integumentary: positive: Dry, Warm Neurologic: positive: Fully Oriented, Alert, Normal Mood/Affect ED Treatment Course - LABORATORY CBC & Chemistry Diagram: 03/07/17 17:00 03/07/17 17:00 Medical Decision Making - Medical Decision Making 03/07/17 16:39 46-year-old female, s/p gastric bypass, diet controlled DM, HTN, uncomplicated renal stones, fibroids, presents with left flank pain. Patient complaining of left lower quadrant pain radiating to left lower back that started several days ago, now more constant and getting worse. Also complaining of ? dysuria. No hematuria, nausea, vomiting, fever or chills. Unclear if common symptoms similar to her stone See exam L flank pain R/o renal colic vs uti (pyelo) vs diverticulitis vs pain due to fibroids Stable and well jennifer w/ benign abd and no CVAT -labs/ua -?CT 03/07/17 16:44 03/07/17 16:44 03/07/17 17:25 03/07/17 18:51 Signed out to JAMI Kumari pending CT *DC/Admit/Observation/Transfer Diagnosis at time of Disposition: Hydronephrosis - Discharge Dispostion Disposition: HOME Condition at time of disposition: Stable - Referrals Referrals: Ricardo Minaya MD [Staff Physician] - Trish Song [Primary Care Provider] - - Patient Instructions Printed Discharge Instructions: Hydronephrosis -- Adult Additional Instructions: Increase fluids Follow up with the urologist (one is noted on your discharge sheet) Return to the ER for severe/persistent/worsening symptom The following is a Preliminary Catscan reading from the Emergency department FINDINGS: There is mild hydronephrosis in the left kidney. The ureter is normal in course and caliber without evidence of obstructing ureteral stone. Findings could be residual from a recently passed stone. There is no perinephric stranding. Punctate nonobstructing stone in the upper pole of the right kidney. The right kidney is otherwise unremarkable The gallbladder is surgically absent The patient is status post gastric bypass surgery There is no bowel distention The appendix is not identified No free air or free fluid
[2017-03-07 17:08] LABS: BASOPHIL 1.1 % (0-2.0); EOSINOPHIL 2.8 % (0-4.5); MCH 27.2 pg (25.7-33.7); MEAN PLT VOLUME 7.8 fl (7.5-11.1); NEUTROPHILS 49.2 % (42.8-82.8); PLATELET COUNT 292 K/MM3 (134-434); WHITE BLOOD COUNT 7.2 K/mm3 (4.0-10.0)
[2017-03-07 17:09] LABS: URINE APPEARANCE CLEAR; URINE BILIRUBIN NEGATIVE (NEGATIVE); URINE BLOOD NEGATIVE (NEGATIVE); URINE COLOR STRAW; URINE GLUCOSE (UA) NEGATIVE (NEGATIVE); URINE KETONE NEGATIVE (NEGATIVE); URINE LEUK ESTERASE NEGATIVE (NEGATIVE); URINE NITRITE NEGATIVE (NEGATIVE); URINE PROTEIN NEGATIVE (NEGATIVE); URINE UROBILINOGEN NEGATIVE mg/dL (0.2-1.0)
[2017-03-07 18:12] LABS: ALBUMIN 3.4 g/dl (3.4-5.0); ANION GAP 8 (8-16); CALCIUM 8.6 mg/dL (8.5-10.1); CO2 26 mmol/L (21-32); CREATININE 0.6 mg/dL (0.55-1.02); GLUCOSE,RANDOM 152 mg/dL (74-106); SGOT/AST 25 U/L (15-37); SGPT/ALT 33 U/L (12-78)
[2017-03-07 18:14] LABS: ALK PHOS 98 U/L (45-117); BILIRUBIN,TOTAL 0.3 mg/dL (0.2-1.0); TOT PROT 6.8 g/dl (6.4-8.2)
--- NOTE | 2017-03-07 18:18 | PDOC ---
*Physical Exam - Vital Signs Last Vital Signs Temp Pulse Resp BP Pulse Ox 98 F 58 L 18 118/75 100 03/07/17 15:09 03/07/17 15:09 03/07/17 15:09 03/07/17 15:09 03/07/17 15:09 - Physical Exam Comments: 03/07/17 18:17 The patient was examined by [JAMI Babb] under my direct supervision. I personally evaluated the patient. I concur with the above findings and the plan of care. ED Treatment Course - LABORATORY CBC & Chemistry Diagram: 03/07/17 17:00 03/07/17 17:00 - ADDITIONAL ORDERS Additional order review: Laboratory Results 03/07/17 03/07/17 17:00 17:00 Sodium 138 Potassium 3.5 Chloride 104 Carbon Dioxide 26 Anion Gap 8 BUN 21 H Creatinine 0.6 Creat Clearance w eGFR > 60 Random Glucose 152 H D Calcium 8.6 Total Bilirubin 0.3 D AST 25 D ALT 33 D Alkaline Phosphatase 98 Total Protein 6.8 Albumin 3.4 Urine Color Straw Urine Appearance Clear Urine pH 5.0 D Urine Protein Negative Urine Glucose (UA) Negative Urine Ketones Negative Urine Blood Negative Urine Nitrite Negative Urine Bilirubin Negative Urine Urobilinogen Negative Ur Leukocyte Esterase Negative 03/07/17 17:00 RBC 4.59 MCV 85.0 MCHC 32.0 RDW 13.0 D MPV 7.8 Neutrophils % 49.2 Lymphocytes % 39.6 D Monocytes % 7.3 Eosinophils % 2.8 Basophils % 1.1 *DC/Admit/Observation/Transfer Diagnosis at time of Disposition: Hydronephrosis - Discharge Dispostion Disposition: HOME Condition at time of disposition: Stable - Referrals Referrals: Ricardo Minaya MD [Staff Physician] - Trish Song [Primary Care Provider] - - Patient Instructions Printed Discharge Instructions: Hydronephrosis -- Adult Additional Instructions: Increase fluids Follow up with the urologist (one is noted on your discharge sheet) Return to the ER for severe/persistent/worsening symptom The following is a Preliminary Catscan reading from the Emergency department FINDINGS: There is mild hydronephrosis in the left kidney. The ureter is normal in course and caliber without evidence of obstructing ureteral stone. Findings could be residual from a recently passed stone. There is no perinephric stranding. Punctate nonobstructing stone in the upper pole of the right kidney. The right kidney is otherwise unremarkable The gallbladder is surgically absent The patient is status post gastric bypass surgery There is no bowel distention The appendix is not identified No free air or free fluid
--- NOTE | 2017-03-07 20:45 | PDOC ---
*Physical Exam - Vital Signs Last Vital Signs Temp Pulse Resp BP Pulse Ox 98 F 58 L 18 118/75 100 03/07/17 15:09 03/07/17 15:09 03/07/17 15:09 03/07/17 15:09 03/07/17 15:09 ED Treatment Course - LABORATORY CBC & Chemistry Diagram: 03/07/17 17:00 03/07/17 17:00 - ADDITIONAL ORDERS Additional order review: Laboratory Results 03/07/17 03/07/17 17:00 17:00 Sodium 138 Potassium 3.5 Chloride 104 Carbon Dioxide 26 Anion Gap 8 BUN 21 H Creatinine 0.6 Creat Clearance w eGFR > 60 Random Glucose 152 H D Calcium 8.6 Total Bilirubin 0.3 D AST 25 D ALT 33 D Alkaline Phosphatase 98 Total Protein 6.8 Albumin 3.4 Urine Color Straw Urine Appearance Clear Urine pH 5.0 D Urine Protein Negative Urine Glucose (UA) Negative Urine Ketones Negative Urine Blood Negative Urine Nitrite Negative Urine Bilirubin Negative Urine Urobilinogen Negative Ur Leukocyte Esterase Negative 03/07/17 17:00 RBC 4.59 MCV 85.0 MCHC 32.0 RDW 13.0 D MPV 7.8 Neutrophils % 49.2 Lymphocytes % 39.6 D Monocytes % 7.3 Eosinophils % 2.8 Basophils % 1.1 - RADIOLOGY Radiograph Interpretation: 03/07/17 20:42 FINDINGS: There is mild hydronephrosis in the left kidney. The ureter is normal in course and caliber without evidence of obstructing ureteral stone. Findings could be residual from a recently passed stone. There is no perinephric stranding. Punctate nonobstructing stone in the upper pole of the right kidney. The right kidney is otherwise unremarkable The gallbladder is surgically absent The patient is status post gastric bypass surgery There is no bowel distention The appendix is not identified No free air or free fluid *DC/Admit/Observation/Transfer Diagnosis at time of Disposition: Hydronephrosis Qualifiers: Hydronephrosis type: other Qualified Code(s): N13.39 - Other hydronephrosis - Discharge Dispostion Disposition: HOME Condition at time of disposition: Stable Admit: No - Referrals Referrals: Trish Song [Primary Care Provider] - Ricardo Minaya MD [Staff Physician] - - Patient Instructions Printed Discharge Instructions: Hydronephrosis -- Adult Additional Instructions: Increase fluids Follow up with the urologist (one is noted on your discharge sheet) Return to the ER for severe/persistent/worsening symptom The following is a Preliminary Catscan reading from the Emergency department FINDINGS: There is mild hydronephrosis in the left kidney. The ureter is normal in course and caliber without evidence of obstructing ureteral stone. Findings could be residual from a recently passed stone. There is no perinephric stranding. Punctate nonobstructing stone in the upper pole of the right kidney. The right kidney is otherwise unremarkable The gallbladder is surgically absent The patient is status post gastric bypass surgery There is no bowel distention The appendix is not identified No free air or free fluid
[2017-03-07 20:50] VITALS: BP 122/65; PULSE 62
== END 2017-03-07 20:50 | disposition home or self-care (01) ==
LOC: JER 15:07
DX: N13.39 Other hydronephrosis (principal); I10 Essential (primary) hypertension; E78.00 Pure hypercholesterolemia, unspecified; E11.9 Type 2 diabetes mellitus without complications; D64.9 Anemia, unspecified
CPT/HCPCS: 36415; 74176-TC; 80053; 81003; 85025; 87086; 99285-25

== ENCOUNTER 2017-04-09 12:31 | Emergency (ER) | payer OTHER ==
[2017-04-09 12:50] VITALS: BP 143/88; PULSE 60; TEMP 97.6; BMI 28.5
[2017-04-09] MEDS ORDERED: KETOROLAC TROMETHAMINE 60 MG/2 ML VIAL IM ONE (13:19)
--- NOTE | 2017-04-09 13:23 | PDOC ---
History of Present Illness - General Chief Complaint: Injury Stated Complaint: PAIN Time Seen by Provider: 04/09/17 12:47 - History of Present Illness Initial Comments: 04/09/17 13:23 CHIEF COMPLAINT: shoulder pain HISTORY OF PRESENT ILLNESS: A 36-year-old female with hx of HTN and HLD presents to fast track status post shoulder injury. Patient reports that part of the ceiling fell and hit her head and shoulder yesterday. Patient complains of "shoulder pain." Patient denies LOC, nausea, vomiting. PAST MEDICAL HISTORY: as per HPI FAMILY HISTORY: Denies SOCIAL HISTORY:Denies tobacco, alcohol, illicit drug use. SURGICAL HISTORY: tubal ligation ALLERGIES: No known drug allergies REVIEW OF SYSTEMS General/Constitutional: Denies fever or chills. Denies weakness, weight change. HEENT: Denies change in vision. Denies ear pain or discharge. Denies sore throat. Cardiovascular: Denies chest pain or shortness of breath. Respiratory: Denies cough, wheezing, or hemoptysis. Gastrointestinal: Denies nausea, vomiting, diarrhea or constipation. Denies rectal bleeding. Genitourinary: Denies dysuria, frequency, or change in urination. Musculoskeletal: L shoulder discomfort. Skin and breasts: Denies rash or easy bruising. Neurologic: Denies headache, vertigo, loss of consciousness, or loss of sensation. PHYSICAL EXAM General Appearance: Well-appearing, appropriately dressed. No apparent distress , no intoxication. HEENT: EOMI, PERRLA, normal ENT inspection, normal voice, TMs normal, pharynx normal. No conjunctival pallor. No photophobia, scleral icterus. Neck: Supple. Trachea midline. No tenderness, rigidity, carotid bruit, stridor , lymphadenopathy, or thyromegaly. Respiratory/Chest: Lungs CTAB. No shortness of breath, chest tenderness, respiratory distress, accessory muscle use. No crackles, rales, rhonchi, stridor , wheezing, dullness Cardiovascular: RRR. S1, S2. No JVD, murmur, bradycardia, tachycardia. Vascular Pulses: Dorsalis-Pedis (R): 2+, Dorsalis-Pedis (L): 2+ Gastrointestinal/Abdominal: Normal bowel sounds. Abdomen soft, non-distended. No tenderness or rebound tenderness. No organomegaly, pulsatile mass, guarding , hernia, hepatomegaly, splenomegaly. Lymphatic: No adenopathy, tenderness. Musculoskeletal/Extremities: Reproducible L shoulder tenderness. Normal inspection. FROM of all extremities, normal capillary refill. Pelvis Stable. No CVA tenderness. No tenderness to extremities, pedal edema, swelling, erythema or deformity. Integumentary: Appropriate color, dry, warm. 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 Fully oriented, alert. Appropriate mood/affect. Motor strength 5/5. No appreciable EOM palsy, facial droop or sensory deficit. Past History - Past Medical History Allergies/Adverse Reactions: Allergies Allergy/AdvReac Type Severity Reaction Status Date / Time No Known Allergies Allergy Verified 04/09/17 12:43 Home Medications: Ambulatory Orders Amlodipine Besylate [Norvasc -] 2.5 mg PO DAILY 03/07/17 Aspirin [ASA -] 81 mg PO DAILY 03/07/17 Atorvastatin Ca [Lipitor] 10 mg PO HS 03/07/17 Cholecalciferol (Vitamin D3) [Vitamin D3 -] 1,000 unit PO DAILY 03/07/17 Ferrous Sulfate 325 mg PO DAILY 03/07/17 Hydrochlorothiazide 25 mg PO DAILY 03/07/17 Lisinopril [Zestril] 30 mg PO DAILY 03/07/17 Diazepam [Valium] 5 mg PO HS PRN #5 tablet MDD 1 04/09/17 Naproxen [Naprosyn -] 250 mg PO BID #14 tablet 04/09/17 Anemia: Yes Diabetes: Yes HTN: Yes Hypercholesterolemia: Yes - Surgical History Abdominal Surgery: Yes Appendectomy: Yes Cholecystectomy: Yes GI Surgery: Yes (GASTRIC BYPASS) - Immunization History Immunization Up to Date: Yes - Psycho/Social/Smoking Cessation Hx Suicidal Ideation: No Smoking History: Never smoked Have you smoked in the past 12 months: No Number of Cigarettes Smoked Daily: 0 If you are a former smoker, when did you quit?: 5 yrs Hx Alcohol Use: No Drug/Substance Use Hx: No Substance Use Type: None *Physical Exam - Vital Signs Last Vital Signs Temp Pulse Resp BP Pulse Ox 97.6 F 60 18 143/88 100 04/09/17 12:43 04/09/17 12:43 04/09/17 12:43 04/09/17 12:43 04/09/17 12:43 Medical Decision Making - Medical Decision Making 04/09/17 13:39 A 36-year-old female with hx of HTN and HLD presents to fast track status post shoulder injury. -60 mg IM toradol (pt is s/p tubal ligation) 04/09/17 13:54 *DC/Admit/Observation/Transfer Diagnosis at time of Disposition: Shoulder injury Qualifiers: Encounter type: initial encounter Laterality: left Qualified Code(s): S49.92XA - Unspecified injury of left shoulder and upper arm, initial encounter - Discharge Dispostion Disposition: HOME Condition at time of disposition: Stable Admit: No - Prescriptions Prescriptions: Naproxen [Naprosyn -] 250 mg PO BID #14 tablet Diazepam [Valium] 5 mg PO HS PRN #5 tablet MDD 1 PRN Reason: Muscle Spasms - Referrals Referrals: Deonte Tabor MD [Staff Physician] - - Patient Instructions Printed Discharge Instructions: DI for Muscle Strain, DI for Cervical Muscle Strain Additional Instructions: Please take medications as prescribed; do NOT drink alcohol, drive, or operate machinery while taking Valium. If your pain persists past 3-4 days, please follow up with orthopedics for further evaluation (referral provided). If you experience any worsening pain, headache, vomiting, dizziness, memory loss, weakness, or any new or worsening symptoms, please return to the ER.
[2017-04-09] MEDS ORDERED: KETOROLAC TROMETHAMINE 60 MG/2 ML VIAL ONE (13:26)
== END 2017-04-09 14:22 | disposition home or self-care (01) ==
LOC: JERFT 12:31
PROC: 3E0233Z Introduction of Anti-inflammatory into Muscle, Percutaneous Approach (ICD-10-PCS; principal; 2017-04-09)
DX: S49.92XA Unspecified injury of left shoulder and upper arm, initial encounter (principal); W20.1XXA Struck by object due to collapse of building, initial encounter; Y93.89 Activity, other specified; Y92.9 Unspecified place or not applicable; I10 Essential (primary) hypertension; E78.5 Hyperlipidemia, unspecified; E11.9 Type 2 diabetes mellitus without complications; Z98.84 Bariatric surgery status; Z87.891 Personal history of nicotine dependence
CPT/HCPCS: 99281-25

== ENCOUNTER 2017-05-21 05:02 | Day surgery (SDC) | payer OTHER ==
[2017-05-19 14:51] VITALS: BMI 26.5
[2017-05-21] MEDS ORDERED: oxyCODONE HCL 5 MG TABLET PO PRN (08:35)
[2017-05-21] MEDS ORDERED: ONDANSETRON 4 MG/2 ML VIAL IVPUSH PRN (08:35)
[2017-05-21] MEDS ORDERED: LACTATED RINGERS SOLUTION 1,000 ML IV SCH ×2 (08:45→09:15)
--- NOTE | 2017-05-21 09:12 | HP ---
History & Physical Update - History History: No Change - Physical Physical: No Change - Assessment Assessment: No Change - Plan Plan: No Change (endometrial polyp/fibroid, for hysteroscopy, possible hysteroscopic myomectomy and suction D&C)
[2017-05-21] MEDS ORDERED: IBUPROFEN 800 MG/8 ML IJ IVPB PRN (09:13)
[2017-05-21] MEDS ORDERED: ACETAMINOPHEN 325 MG TABLET (FP) PO PRN (09:13)
[2017-05-21] MEDS ORDERED: MIDAZOLAM HCL 2 MG/2 ML SINGLE DOSE VIAL ONE (09:24)
[2017-05-21] MEDS ORDERED: PROPOFOL 20 ML ONE (09:24)
--- NOTE | 2017-05-21 10:28 | OP ---
Operative Note - Note: Operative Date: 05/21/17 (dictation number [id number]) Pre-Operative Diagnosis: AUB, endometrial polyp Operation: hysteroscopic myomectomy, suction D&C Findings: anterior fundal endometrial polyp Post-Operative Diagnosis: Same as Pre-op Surgeon: Lin Lindsay Anesthesiologist/FERMENTING CELLARS RECEIVER: Marzena Tucker Anesthesia: MAC (with LMA) Specimens Removed: endometrial polyp, endometrial currettings Estimated Blood Loss (mls): 5 Operative Report Dictated: Yes
--- NOTE | 2017-05-21 11:05 | OP ---
DATE OF OPERATION: 05/21/2017 PREOPERATIVE DIAGNOSIS: Abnormal uterine bleeding, suspected endometrial polyp. POSTOPERATIVE DIAGNOSIS: Confirmed endometrial polyp. PROCEDURE: Hysteroscope with myomectomy and resection of endometrial polyp and suction dilation and curettage. SURGEON: Lin Lindsay DO ANESTHESIA: LMA by Rachele Tucker. ESTIMATED BLOOD LOSS: 5 mL. SPECIMENS: Removed included endometrial curettings as well as endometrial polyp. COMPLICATIONS: None. Sponge and instrument count correct at the end of the case. DISPOSITION: Stable to PACU. BRIEF HISTORY: The patient is a 46-year-old female who has come to the office complaining of heavy menstrual periods. Upon saline infusion hysterosonogram, it was diagnosed that she had an endometrial polyp. At this point, she had signed consents for a resection of the polyp as well as a dilation and curettage with hysteroscopy. The patient was admitted to [facility] on May 21, 2017. Consents were reconfirmed. DESCRIPTION OF PROCEDURE: The patient was taken back to the operating room. She was placed in a dorsal lithotomy position and given anesthesia with LMA by Rachele Tucker. Selby catheter was placed under sterile conditions. She was prepped and draped in the usual sterile fashion, and a hard time-out was performed. A speculum was placed inside the vagina. The anterior lip of the cervix was grasped with a single-tooth tenaculum, and the cervix was serially dilated to accommodate an operative hysteroscope, which was advanced to the fundus. Bilateral tubal ostia were noted, and an anterior fundal endometrial polyp was appreciated. The was used to resect the polyp in its entirety, and then a suction dilation and curettage was performed with several passes until the intrauterine contents were all removed. Specimens were sent to pathology for permanent evaluation. Sponges and instruments were removed from the vagina. Tenaculum was released from the cervix, and the tenaculum sites were noted to be hemostatic. The patient tolerated the procedure well and recovering in stable condition in the PACU at the time of this dictation. LIN LINDSAY DO /[id number]
[2017-05-21 12:24] VITALS: TEMP 97.8
[2017-05-21 14:48] VITALS: BP 138/82; PULSE 58
--- NOTE | 2017-05-22 13:35 | PATH ---
Surgical Pathology Report Patient Name: ELMA BABCOCK [facility]. Rec. #: [id number] /Age/Gender: 1970 (Age: 46) / F Account: [id number] Location: [facility] Taken: 05/21/2017 Received: 05/21/2017 Reported: 05/22/2017 Physicians: Lin Lindsay M.D. Specimen(s) Received ENDOMETRIAL POLYP Clinical History Endometrial polyp, abnormal uterine bleeding Final Diagnosis ENDOMETRIAL POLYP, POLYPECTOMY: FRAGMENTS OF DISORDERED PROLIFERATIVE AND FOCALLY EARLY SECRETORY-TYPE ENDOMETRIUM WITH AREAS SUGGESTIVE OF ENDOMETRIAL POLYP. FRAGMENT OF BENIGN SMOOTH MUSCLE. FRAGMENTS OF BENIGN SQUAMOUS EPITHELIUM. Electronically Signed Terry Veloz M.D. Gross Description Received in formalin labeled "endometrial polyp" is a 2.5 x 2.0 x 0.2 cm aggregate of thornton-pink soft tissue fragments. The formalin is filtered and the specimen is entirely submitted in one cassette. /05/21/2017 saudi/05/21/2017
== END 2017-05-21 13:00 | disposition home or self-care (01) ==
LOC: JASU-SURG 05:02
PROVIDERS: ATTEND Obstetrics & Gynecology
PROC: 0UB98ZX Excision of Uterus, Via Natural or Artificial Opening Endoscopic, Diagnostic (ICD-10-PCS; principal; 2017-05-21 09:00)
PROC: 0UDB8ZX Extraction of Endometrium, Via Natural or Artificial Opening Endoscopic, Diagnostic (ICD-10-PCS; 2017-05-21 09:00)
DX: N93.9 Abnormal uterine and vaginal bleeding, unspecified (principal); N84.0 Polyp of corpus uteri
CPT/HCPCS: 88305-TC; 94760